=== PATIENT | female | born 1995 | race Hispanic/Latino ===

== ENCOUNTER 2018-08-04 21:53 | Emergency (ER) | payer MEDICAID ==
[2018-08-04] MEDS ORDERED: DEXAMETHASONE SOD PHOSPHATE 10MG/ML 1ML VIAL ONE (22:29)
[2018-08-04] MEDS ORDERED: KETOROLAC TROMETHAMINE 60 MG/2 ML VIAL ONE ×2 (22:30→23:22)
[2018-08-04] MEDS ORDERED: AMOXICILLIN 500 MG CAPSULE PO ONE (23:22)
== END 2018-08-04 23:28 | disposition home or self-care (01) ==
LOC: EDH 21:53
DX: J02.9 Acute pharyngitis, unspecified (principal); F41.9 Anxiety disorder, unspecified; Z88.1 Allergy status to other antibiotic agents
CPT/HCPCS: 87804 ×2; 87880; 96372 ×2; 99284; J1100; J1885

== ENCOUNTER 2019-05-18 18:55 | Emergency (ER) | payer MEDICAID | END 2019-05-18 19:34 | disposition home or self-care (01) | LOC: EDH 18:55 | DX: J06.9 Acute upper respiratory infection, unspecified (principal); R11.10 Vomiting, unspecified; F41.9 Anxiety disorder, unspecified; Z88.1 Allergy status to other antibiotic agents | CPT/HCPCS: 99281 ==